=== PATIENT | male | born 1985 | race Caucasian/White ===

== ENCOUNTER 2023-11-17 16:23 | Inpatient (IN) ==
[2023-11-17 17:07] LABS: Basophils # (auto) 0.05 K/uL (0.00-0.20); Basophils % (auto) 0.8 %; Eosinophils # (auto) 0.08 K/uL (0.00-0.50); Eosinophils % (auto) 1.3 %; Hematocrit (blood only) 46.4 % (42.0-52.0); Hemoglobin 15.4 g/dl (14.0-18.0); Immature Granulocytes # (auto) 0.03 K/uL (0.01-0.20); Immature Granulocytes % (auto) 0.5 %; Lymphocytes # (auto) 1.28 K/uL (1.20-3.40); Lymphocytes % (auto) 20.3 %; Mean Corpuscular Hemoglobin 31.3 pg (25.0-34.0); Mean Corpuscular Hgb Conc 33.2 g/dL (32.0-36.0); Mean Corpuscular Volume 94.3 fL (80.0-100.0); Mean Platelet Volume 10.2 fL (9.4-12.4); Monocytes # (auto) 0.53 K/uL (0.11-0.59); Monocytes % (auto) 8.4 %; Neutrophils # (auto) 4.35 K/uL (1.40-6.50); Neutrophils % (auto) 68.7 %; Platelet Count 225 K/uL (130-400); RDW Coefficient of Variation 12.1 % (11.5-14.5); RDW Standard Deviation 41.9 fL (36.4-46.3); Red Blood Count 4.92 M/uL (4.70-6.10); White Blood Count 6.32 K/ul (4.8-10.8)
[2023-11-17 17:13] LABS: Appearance Urine Clear (Clear); Bilirubin Urine Negative (Negative); Blood Urine Negative (Negative); Color Urine Yellow; Glucose Urine UA Negative (Negative); Ketones Urine Negative (Negative); Leukocyte Esterase Urine Negative (Negative); Nitrite Urine Negative (Negative); Protein Urine Negative (Negative); Specific Gravity Urine 1.003 (1.000-1.030); Urobilinogen Urine Negative (Negative)
[2023-11-17 17:31] LABS: Albumin Globulin Ratio 1.7 (0.9-2); Bilirubin,Total 0.5 mg/dl (0.2-1.0); Creatinine Clr Calc Pharmacy 115.4 ml/min; Est GFR (African American) 111.7 ml/min; Est GFR (Non-African American) 96.4 ml/min; Globulin 2.9 gm/dl (2.5-4.0); Potassium 3.8 mmol/L (3.5-5.1); Total Protein 7.9 gm/dl (6.0-8.3)
[2023-11-17 17:52] LABS: Acetaminophen < 3 ug/ml (10-30); Salicylate < 3.0 mg/dl (3.0-30)
[2023-11-17 17:53] LABS: Amphetamines+Metham, Urine Neg (Neg); Barbiturates, Urine Neg (Neg); Benzodiazepine, Urine Neg (Neg); Cocaine, Urine Neg (Neg); Fentanyl, Urine Neg (Neg); MDMA (Ecstacy), Urine Neg (Neg); Marijuana, Urine Neg (Neg); Methadone, Urine Neg (Neg); Opiate, Urine Neg (Neg); Phencyclidine, Urine Neg (Neg)
--- NOTE | 2023-11-17 18:32 | Emergency Department Note ---
Impression & Plan Suicidal ideation, Has access to firearm ED Provider Note NAME: GHULAM GUNN AGE: 38 SEX: M : 1985 ARRIVES VIA: Walk-In INFORMANT: Patient, ED PROVIDER(S): Luis Waldron MD CHIEF COMPLAINT: Suicide attempt HPI: This is a 38-year-old male presenting for a suicide attempt. Patient recently was in detox/rehab. Patient left after the detox portion of the admission. He then went home, began drinking and then left to suicide notes. He had a loaded 9 mm handgun and had plans to shoot himself of the chest. He did not go through this yet. He states he does not any help at this time. He does state he had suicidal intent. ROS: See above HPI for pertinent positives & negatives. A total of 10 systems reviewed and were otherwise negative. PHYSICAL EXAMINATION: General: resting comfortably in no acute distress Head: Normocephalic and atraumatic Eyes: Normal inspection, extraocular muscles intact Ear, nose, throat: Normal external exam Neck: Normal range of motion Respiratory: lungs clear to auscultation bilaterally Cardiovascular: Regular rate/rhythm, no murmur GI: soft, nontender, no guarding or rebound Extremities: nontender, moves all extremities Neuro: The patient awake and alert, appropriately conversive, no focal deficits, symmetric faces Skin: Warm, dry, and intact Psych: Calm, linear thought process, MEDICAL DECISION MAKING: This is a 38-year-old male presenting for suicide attempt. Patient had a loaded 9 mm handgun and had plans to treat himself for the chest. I was given the suicide note and is very explicit and that patient had full intent to go through with suicide as he feels like he had to many mistakes in his life and that he is a burden. Will do screening medical workup. Patient will need to be a 302 as he does not want any psychiatric help at this time. -Blood work is reviewed showing no leukocytosis or anemia. Slight transaminitis concerning for alcoholic source. No bilirubin elevation. No coingestions. alcohol level was elevated. -302 signed. Patient will medically clear at around midnight based on his initial alcohol level. -Patient signed out to oncoming physician, Dr. Hinds, pending placement. Differential diagnosis: SI, HI, schizophrenia, bipolar ER treatment provided: See below Diagnostics interpreted by me: ECG: None Cardiac Monitoring: An order was placed for continuous cardiac monitoring. The monitor shows a rate of 87 with sinus rhythm. Laboratory studies: As stated above and show below. Imaging studies: See below. Past Med/Surg History Problem List (Updated 11/17/23 @ 23:54 by Luis Waldron MD) Has access to firearm (Acute) Suicidal ideation (Acute) Alcohol dependence (Acute) Laceration (Acute) Social History Smoking Status: Never smoker Feels Safe at Home: Yes Allergies Allergies Allergy/AdvReac Type Severity Reaction Status Date / Time No Known Allergies Allergy Mild Unverified 07/26/07 10:16 Home Meds Home Medications Medication Instructions Recorded Confirmed None (Patient States No Home Meds) ##0 06/26/08 Results & Data (ED) Vital Signs Vital Signs - 24 hr 11/17/23 16:27 11/17/23 19:15 11/17/23 21:46 Temperature 36.8 C 36.7 C Temperature Source Skin Oral Pulse Rate 125 H Pulse Rate [Finger] 104 H 100 H Respiratory Rate 20 20 18 Respiratory Effort / Characteristics Non-Labored Spontaneous Respiratory Depth Normal Respiratory Pattern Regular Blood Pressure 122/75 Blood Pressure [Left Arm] 103/65 100/56 L Blood Pressure Mean 90 Blood Pressure Mean [Left Arm] 77 70 Pulse Oximetry 96 96 98 Oxygen Delivery Method Room Air Room Air Sepsis Recent Fever Within 48 Hours No Sepsis New/Unexplained Change in Mental Status N/A Sepsis Action Taken by Nursing No Action Required 11/17/23 23:15 Temperature Temperature Source Pulse Rate Pulse Rate [Finger] 87 Respiratory Rate 18 Respiratory Effort / Characteristics Non-Labored Spontaneous Respiratory Depth Normal Respiratory Pattern Blood Pressure Blood Pressure [Left Arm] 116/74 Blood Pressure Mean Blood Pressure Mean [Left Arm] 88 Pulse Oximetry 100 Oxygen Delivery Method Room Air Sepsis Recent Fever Within 48 Hours Sepsis New/Unexplained Change in Mental Status Sepsis Action Taken by Nursing Laboratory Data 11/17/23 16:50 11/17/23 16:50 Lab Results 11/17/23 11/17/23 Range/Units 16:45 16:50 WBC 6.32 (4.8-10.8) K/ul RBC 4.92 (4.70-6.10) M/uL Hgb 15.4 (14.0-18.0) g/dl Hct 46.4 (42.0-52.0) % MCV 94.3 (80.0-100.0) fL MCH 31.3 (25.0-34.0) pg MCHC 33.2 (32.0-36.0) g/dL RDW Std Deviation 41.9 (36.4-46.3) fL RDW Coeff of Dee 12.1 (11.5-14.5) % Plt Count 225 (130-400) K/uL MPV 10.2 (9.4-12.4) fL Immature Gran % (Auto) 0.5 % Neut % (Auto) 68.7 % Lymph % (Auto) 20.3 % [place] % (Auto) 8.4 % Eos % (Auto) 1.3 % Baso % (Auto) 0.8 % Neut # (Auto) 4.35 (1.40-6.50) K/uL Lymph # (Auto) 1.28 (1.20-3.40) K/uL [place] # (Auto) 0.53 (0.11-0.59) K/uL Eos # (Auto) 0.08 (0.00-0.50) K/uL Baso # (Auto) 0.05 (0.00-0.20) K/uL Immature Gran # (Auto) 0.03 (0.01-0.20) K/uL Sodium 141 (136-145) mmol/L Potassium 3.8 (3.5-5.1) mmol/L Chloride 105 (98-107) mmol/L Carbon Dioxide 21 (21-32) mmol/L Anion Gap 15 H (3-11) BUN 6 (6-23) mg/dl Creatinine 1.00 (0.6-1.4) mg/dl Est Cr Clr Drug Dosing 115.4 ml/min Est GFR ( Amer) 111.7 ml/min Est GFR (Non-Af Amer) 96.4 ml/min BUN/Creatinine Ratio 6.0 L (10-20) Glucose 100 H (70-99(Fasting)) mg/dl Calcium 10.0 (8.6-10.3) mg/dl Total Bilirubin 0.5 (0.2-1.0) mg/dl AST 57 H (13-39) U/L ALT 90 H (7-52) U/L Alkaline Phosphatase 56 (34-104) U/L Total Protein 7.9 (6.0-8.3) gm/dl Albumin 5.0 (3.4-5.0) gm/dl Globulin 2.9 (2.5-4.0) gm/dl Albumin/Globulin Ratio 1.7 (0.9-2) TSH 1.137 (0.300-4.500) uIu/ml Urine Color Yellow Urine Appearance Clear (Clear) Urine pH 6.0 (4.5-7.5) Ur Specific [place] 1.003 (1.000-1.030) Urine Protein Negative (Negative) Urine Glucose (UA) Negative (Negative) Urine Ketones Negative (Negative) Urine Blood Negative (Negative) Urine Nitrite Negative (Negative) Urine Bilirubin Negative (Negative) Urine Urobilinogen Negative (Negative) Ur Leukocyte Esterase Negative (Negative) Salicylates < 3.0 L (3.0-30) mg/dl Urine Opiates Screen Neg (Neg) Ur Methadone, Qual Neg (Neg) Urine Fentanyl Screen Neg (Neg) Acetaminophen < 3 L (10-30) ug/ml Urine Barbiturates Neg (Neg) Ur Phencyclidine (PCP) Neg (Neg) U Amphetamin/Meth Scrn Neg (Neg) MDMA (Ecstasy) Screen Neg (Neg) U Benzodiazepines Scrn Neg (Neg) Ur Cocaine Metabolite Neg (Neg) U Marijuana (THC) Screen Neg (Neg) Ethyl Alcohol mg/dL 290.6 H (<10.0) mg/dl SARS-CoV-2, RNA, NAAT NEGATIVE (NEGATIVE) Discharge Plan Visit Data Chief Complaint: Mental Health Evaluation Stated Complaint: 302/MENTAL HEALTH EVAL ED Provider: Luis Waldron Discharge Problem: Suicidal ideation, Has access to firearm Forms Stand Alone Forms: My [facility], Suicide Prevention Resources Prescriptions Prescriptions: No Action None (Patient States No Home Meds) . Qty: 0 Referrals Referrals: PCP,NO [Primary Care Provider] -
[2023-11-17 18:50] LABS: Thyroid Stimulating Hormone 1.137 uIu/ml (0.300-4.500)
--- NOTE | 2023-11-18 00:03 | Emergency Department Note ---
ED Visit Note This patient was signed out to me at shift change by Dr. Waldron. The patient came in with a suicidal plan and a 302 had been signed off. He was evaluated by mental health. 3 S. has seen the patient and will be admitting the patient for further inpatient treatment and evaluation .
[2023-11-18] MEDS ORDERED: SODIUM CHLORIDE 0.65% NA SOLN 45 ML (OCEAN) PRN (05:13)
[2023-11-18] MEDS ORDERED: ALUMINUM/MAGNESIUM SUSP 30 ML UDC PO PRN (05:13)
[2023-11-18] MEDS ORDERED: MAGNESIUM HYDROXIDE SUSP 30 ML UDC PO PRN (05:13)
[2023-11-18] MEDS ORDERED: LORazepam 1 MG TAB PO PRN ×4 (05:13)
[2023-11-18] MEDS ORDERED: BISMUTH SUBSALICYLATE LIQD 236 ML PO PRN (05:13)
[2023-11-18] MEDS ORDERED: hydrOXYzine HCl 25 MG TAB PO PRN ×2 (05:13)
[2023-11-18] MEDS ORDERED: Ativan PO Alcohol Withdrawal--Active Protocol PO PRN (05:13)
[2023-11-18] MEDS ORDERED: ACETAMINOPHEN 325 MG TAB PO PRN (05:13)
[2023-11-18] MEDS: SERTRALINE HCL 50 MG TABLET PO SCH (12:59)
[2023-11-18] MEDS: FOLIC ACID 1 MG TAB PO SCH (15:34)
[2023-11-18] MEDS: THIAMINE HCL 100 MG TAB PO SCH (15:34)
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
--- NOTE | 2023-11-19 15:31 | Psychiatric Progress Note ---
Date of Service November 19, 2023 Impression / Recommendations Impression GHULAM GUNN is a 38-year-old M who currently lives in alone, no past psychiatric history, and was admitted on 11/18/23 04:47 on a 302 involuntary commitment for suicide ideation with note and gesture. Diagnosis consistent with major depressive disorder and alcohol use disorder. Today we explored patient's view of himself, self esteem issues, and extent and problems related to alcohol consumptions. Patient meets criteria for mild to moderate alcohol use disorder and conducted motivational interviewing and education on community programs for abstinence. He self presented intention for inpatient rehab facility and will coordinate with social work. Tolerating sertraline with mild GI complaints and plan to continue. Overall, I spent a total of 45 minutes with this case including review of chart records, nursing report, direct evaluation of the patient at bedside, counseling the patient, multidisciplinary team meeting, orders, and documentation in the electronic health record. (1) MDD (major depressive disorder), recurrent episode, moderate: (2) Alcohol use disorder: (3) Laceration: Plan 11/19/2023: Continue medications and treatment plan. 11/18/2023: The patient was admitted to the [facility] ([facility]) on q15 min checks (behavioral with suicide precautions) for safety. The patient will participate in group, recreational, and milieu therapies and will be offered additional individual and family sessions as clinically appropriate. Start sertraline 50 mg daily. Discontinue audit protocol. Inventory Assets Strengths: family support, finances Needs: insight into condition, openness to treatment Suicide Risk Level Suicide Risk Level: Moderate (q15 min suicide checks) Risk Factors Assessment Male: Yes : Yes Do You Have Access To A Gun?: Yes (Father Took the firearm.) Health Problems: No Mental Health Diagnoses: Yes Substance Use Disorders: Yes Previous Attempt: No Family History of Suicide: No Previous Psychiatric Hospitalization: No Hopelessness: No Protective Factors Assessment Pentecostalism Beliefs: No : No Responsible for Young Children: No Employed: No (fired from job) Stable Relationships: Yes Supportive Family: Yes Good Rapport with Provider: Yes Absence of Any Risk Factors Above: No Interval History Identifying Information GHULAM GUNN is a 38-year-old M who currently lives in alone, no past psychiatric history, and was admitted on 11/18/23 04:47 on a 302 involuntary commitment for suicide ideation with note and gesture. Chief Complaint "Positive" Review of Systems Sleep Information Total Hours of Sleep: 0.75 Sleep Comments: admitted early in morning Meal Information Percent Meal Consumed - Breakfast: 75 Percent Meal Consumed - Lunch: 100 Percent Meal Consumed - Dinner: 100 Subjective Subjective Patient was seen & assessed and interval progress reviewed with treatment team nursing and social work Pt slept well last night. Feels "positive" about the future. Had a visit from mother and brother. Reports that father was his idol growing up and seeing him vunerable with his addiction changed the family dynamics. He felt is brought everyone closer. He used to relate weakness to vulnerability and reports that's not the case. Reports he enjoys helping others. Has difficulty forgiving himself for the things hes done in the past. Reports historically using alcohol socially but recently has noticed he's using it more to cope. Drinks more in the winter and has periods of times where he escalates use. Denies having difficulty cutting down when he needs to. When younger would drink prior to work with his friends; reports that is not the case as he has gotten older. Reports inc tolerance and has to drink more now to get the same effect. On a night out could drink 7-8 mixed drinks and shots. C/o some withdrawals cutting down alcohol with "Shakes." Reports associated problems of relationship issues where he will go out with his significant other and is more focused on drinking than her. Notices when he drinks he is less motivated to take care of tasks. Denies SI. Wants to get into inpatient rehab after discussing with family. C/o mild GI upset with sertraline, reports its tolerable. Physical Exam Mental Examination appearance: cespedes, tall Appearance: Well Groomed Eye Contact: Maintains Eye Contact Motor Behavior: Unremarkable Speech: Normal Mood: Euthymic and Calm Affect: Congruent Thought Process: Intact and Linear Thought Content: Intact Hallucinations: None Insight: Poor (improving) Judgement: Poor Vital Signs (Past 24 Hours) Last Vital Signs Temp 36.7 C 11/18/23 05:59 Pulse 103 H 11/18/23 05:59 Resp 18 11/18/23 05:59 BP 131/91 11/18/23 05:59 Pulse Ox 96 11/18/23 05:59 O2 Del Method Room Air 11/18/23 05:59 Results & Data ([facility]) Current Inpatient Medications Current Inpatient Medications: Current Inpatient Medications Acetaminophen (Acetaminophen 325 Mg Tab) 650 mg PO Q4H PRN PRN Reason: Headache or Minor Fever Stop: 12/18/23 05:12 Al Hydrox/Mg Hydrox/Simethicone (Aluminum/Magnesium Susp 30 Ml Udc) 30 ml PO Q4H PRN PRN Reason: GI Upset Stop: 12/18/23 05:12 Bismuth Subsalicylate (Bismuth Subsalicylate Liqd 236 Ml) 15 ml PO PRN PRN PRN Reason: Loose Stool Stop: 12/18/23 05:12 Hydroxyzine HCl (Hydroxyzine Hcl 25 Mg Tab) 50 mg PO HSZ PRN PRN Reason: Insomnia Stop: 12/18/23 05:12 Hydroxyzine HCl (Hydroxyzine Hcl 25 Mg Tab) 25 mg PO Q4H PRN PRN Reason: Anxiety Stop: 12/18/23 05:12 Magnesium Hydroxide (Magnesium Hydroxide Susp 30 Ml Udc) 30 ml PO DAILY PRN PRN Reason: Constipation Stop: 12/18/23 05:12 Sertraline HCl (Sertraline Hcl 50 Mg Tablet) 50 mg PO QAM TOBY Stop: 12/18/23 12:14 Last Admin: 11/18/23 12:59 Dose: 50 mg Sodium Chloride (Sodium Chloride 0.65% Na Soln 45 Ml ([place])) 1 - 2 sprays NA PRN PRN PRN Reason: Nasal Dryness/Congestion Stop: 12/18/23 05:12 Post Discharge Appointments Primary Care Physician Name Of Family Doctor/PCP: None Currently
--- NOTE | 2023-11-20 08:50 | Psychiatric Progress Note ---
Date of Service November 20, 2023 Impression / Recommendations Impression GHULAM GUNN is a 38-year-old M who currently lives in alone, no past psychiatric history, and was admitted on 11/18/23 04:47 on a 302 involuntary commitment for suicide ideation with note and gesture. Diagnosis consistent with major depressive disorder and alcohol use disorder. A: Mood improving, motivational interviewing and in action stage of change, called residential treatment facility and motivated to start there if accepted. Reviewed option to start naltrexone, he declines at this time. Denies any side effects from sertraline. Finding groups and processing very helpful. Overall, I spent a total of 40 minutes with this case including review of chart records, nursing report, direct evaluation of the patient at bedside, counseling the patient, multidisciplinary team meeting, orders, and documentation in the electronic health record. (1) MDD (major depressive disorder), recurrent episode, moderate: (2) Alcohol use disorder: (3) Laceration: Plan 11/20/2023: Continue current medications and tx plan. 11/19/2023: Continue medications and treatment plan. 11/18/2023: The patient was admitted to the [facility] ([facility] mental health unit) on q15 min checks (behavioral with suicide precautions) for safety. The patient will participate in group, recreational, and milieu therapies and will be offered additional individual and family sessions as clinically appropriate. Start sertraline 50 mg daily. Discontinue awss protocol. 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, feels safe in the hospital) Risk Factors Assessment Male: Yes : Yes Do You Have Access To A Gun?: Yes (Father Took the firearm.) Health Problems: No Mental Health Diagnoses: Yes Substance Use Disorders: Yes Previous Attempt: No Family History of Suicide: No Previous Psychiatric Hospitalization: No Hopelessness: No Protective Factors Assessment Mormon Beliefs: No : No Responsible for Young Children: No Employed: No (fired from job) Stable Relationships: Yes Supportive Family: Yes Good Rapport with Provider: Yes Absence of Any Risk Factors Above: No Interval History Identifying Information GHULAM GUNN is a 38-year-old M who currently lives in alone, no past psychiatric history, and was admitted on 11/18/23 04:47 on a 302 involuntary commitment for suicide ideation with note and gesture. Chief Complaint "making a lot of progress". Review of Systems Sleep Information Total Hours of Sleep: 6.45 Sleep Comments: Meal Information Percent Meal Consumed - Breakfast: 75 Percent Meal Consumed - Lunch: 100 Percent Meal Consumed - Dinner: 50 Subjective Subjective Patient was seen & assessed and interval progress reviewed with treatment team nursing and social work. Attending groups. Reports mood improving, motivated for residential tx. Good visit with family. No GI symptoms today. Physical Exam Psychiatric Orientation: alert and oriented x 3 Apperance: appropriately dressed Eye Contact: + fair eye contact Motor Behavior: no abnormal motor movements Speech: normal rate/rhythm/volume of speech Affect: euthymic affect Mood: + depressed mood and + anxious mood Thought Process: goal directed thought process Thought Content: reality based without delusions Suicidal Thoughts: denies suicidal thoughts Homicidal Thoughts: denies homicidal thoughts Hallucinations: no auditory hallucinations and no visual hallucinations Insight: + fair insight Judgment: + fair judgement Vital Signs (Past 24 Hours) Last Vital Signs Temp 36.8 C 11/20/23 06:48 Pulse 73 11/20/23 06:48 Resp 18 11/20/23 06:48 BP 129/83 11/20/23 06:48 Pulse Ox 99 11/20/23 06:48 O2 Del Method Room Air 11/20/23 06:48 Results & Data ([facility]) Current Inpatient Medications Current Inpatient Medications: Current Inpatient Medications Acetaminophen (Acetaminophen 325 Mg Tab) 650 mg PO Q4H PRN PRN Reason: Headache or Minor Fever Stop: 12/18/23 05:12 Al Hydrox/Mg Hydrox/Simethicone (Aluminum/Magnesium Susp 30 Ml Udc) 30 ml PO Q4H PRN PRN Reason: GI Upset Stop: 12/18/23 05:12 Bismuth Subsalicylate (Bismuth Subsalicylate Liqd 236 Ml) 15 ml PO PRN PRN PRN Reason: Loose Stool Stop: 12/18/23 05:12 Hydroxyzine HCl (Hydroxyzine Hcl 25 Mg Tab) 50 mg PO HSZ PRN PRN Reason: Insomnia Stop: 12/18/23 05:12 Hydroxyzine HCl (Hydroxyzine Hcl 25 Mg Tab) 25 mg PO Q4H PRN PRN Reason: Anxiety Stop: 12/18/23 05:12 Magnesium Hydroxide (Magnesium Hydroxide Susp 30 Ml Udc) 30 ml PO DAILY PRN PRN Reason: Constipation Stop: 12/18/23 05:12 Sertraline HCl (Sertraline Hcl 50 Mg Tablet) 50 mg PO QAM TOBY Stop: 12/18/23 12:14 Last Admin: 11/20/23 08:28 Dose: 50 mg Sodium Chloride (Sodium Chloride 0.65% Na Soln 45 Ml ([place])) 1 - 2 sprays NA PRN PRN PRN Reason: Nasal Dryness/Congestion Stop: 12/18/23 05:12 Mental Health & Subst Abuse Tx Psychiatrist Name of Psychiatrist: N/A Therapist Name of Therapist: N/A Post Discharge Appointments Primary Care Physician Name Of Family Doctor/PCP: Christie Waldron (new referral) [address] [facility] 2 Primary Care Date of Future Appointment with PCP: 12/01/23 Time of Appointment with PCP: 11:00am Provider Appointment Comment: Please arrive at 10:45, bring ID and insurance card to appt. Partial or Psych Rehab Name of Partial or Psych Rehab: [facility] (Residential D[facility]A) Phone Number of Partial or Psych Rehab: [phone] Partial or Psych Rehab Appointment Comment: [address] [id number]
--- NOTE | 2023-11-21 09:06 | Psychiatric Progress Note ---
Date of Service November 21, 2023 Impression / Recommendations Impression GHULAM GUNN is a 38-year-old M who currently lives in alone, no past psychiatric history, and was admitted on 11/18/23 04:47 on a 302 involuntary commitment for suicide ideation with note and gesture. Diagnosis consistent with major depressive disorder and alcohol use disorder. A: Mood continues to improve, remains motivated for residential substance use treatment which at this point will be the biggest modifiable risk factor to reduce risk of self-harm. Tolerating sertraline well. Continuing to explore appropriate disposition options. Overall, I spent a total of 25 minutes with this case including review of chart records, nursing report, direct evaluation of the patient at bedside, counseling the patient, multidisciplinary team meeting, orders, and documentation in the electronic health record. (1) MDD (major depressive disorder), recurrent episode, moderate: (2) Alcohol use disorder: (3) Laceration: Plan 11/21/2023: Can have sutures removed. Continue current meds and tx plan. Ongoing disposition planning. 11/20/2023: Continue current medications and tx plan. 11/19/2023: Continue medications and treatment plan. 11/18/2023: The patient was admitted to the [facility] ([facility]) on q15 min checks (behavioral with suicide precautions) for safety. The patient will participate in group, recreational, and milieu therapies and will be offered additional individual and family sessions as clinically appropriate. Start sertraline 50 mg daily. Discontinue awss protocol. 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, feels safe in the hospital) Risk Factors Assessment Male: Yes : Yes Do You Have Access To A Gun?: Yes (Father Took the firearm.) Health Problems: No Mental Health Diagnoses: Yes Substance Use Disorders: Yes Previous Attempt: No Family History of Suicide: No Previous Psychiatric Hospitalization: No Hopelessness: No Protective Factors Assessment Evangelical Beliefs: No : No Responsible for Young Children: No Employed: No (fired from job) Stable Relationships: Yes Supportive Family: Yes Good Rapport with Provider: Yes Absence of Any Risk Factors Above: No Interval History Identifying Information GHULAM GUNN is a 38-year-old M who currently lives in alone, no past psychiatric history, and was admitted on 11/18/23 04:47 on a 302 involuntary commitment for suicide ideation with note and gesture. Chief Complaint "Well". Review of Systems Sleep Information Total Hours of Sleep: 6.30 Meal Information Percent Meal Consumed - Breakfast: 100 Percent Meal Consumed - Lunch: 100 Percent Meal Consumed - Dinner: 100 Subjective Subjective Patient was seen & assessed and interval progress reviewed with treatment team nursing and social work. Attending groups. Talking to different residential treatment facilities. He would prefer to go right to treatment from inpatient stay to reduce risk of relapse. Mood is stable today, denies SI. Reviewed that his sutures are due to be removed. Physical Exam Psychiatric Orientation: alert and oriented x 3 Apperance: appropriately dressed Eye Contact: good eye contact Motor Behavior: no abnormal motor movements Speech: normal rate/rhythm/volume of speech Affect: euthymic affect Mood: + anxious mood Thought Process: goal directed thought process Thought Content: reality based without delusions Suicidal Thoughts: denies suicidal thoughts Homicidal Thoughts: denies homicidal thoughts Hallucinations: no auditory hallucinations and no visual hallucinations Insight: + fair insight Judgment: + fair judgement Vital Signs (Past 24 Hours) Last Vital Signs Temp 36.6 C 11/21/23 06:41 Pulse 95 H 11/21/23 06:41 Resp 16 11/21/23 06:41 BP 125/83 11/21/23 06:41 Pulse Ox 97 11/21/23 06:41 O2 Del Method Room Air 11/21/23 06:41 Results & Data ([facility]) Current Inpatient Medications Current Inpatient Medications: Current Inpatient Medications Acetaminophen (Acetaminophen 325 Mg Tab) 650 mg PO Q4H PRN PRN Reason: Headache or Minor Fever Stop: 12/18/23 05:12 Al Hydrox/Mg Hydrox/Simethicone (Aluminum/Magnesium Susp 30 Ml Udc) 30 ml PO Q4H PRN PRN Reason: GI Upset Stop: 12/18/23 05:12 Bismuth Subsalicylate (Bismuth Subsalicylate Liqd 236 Ml) 15 ml PO PRN PRN PRN Reason: Loose Stool Stop: 12/18/23 05:12 Hydroxyzine HCl (Hydroxyzine Hcl 25 Mg Tab) 50 mg PO HSZ PRN PRN Reason: Insomnia Stop: 12/18/23 05:12 Hydroxyzine HCl (Hydroxyzine Hcl 25 Mg Tab) 25 mg PO Q4H PRN PRN Reason: Anxiety Stop: 12/18/23 05:12 Magnesium Hydroxide (Magnesium Hydroxide Susp 30 Ml Udc) 30 ml PO DAILY PRN PRN Reason: Constipation Stop: 12/18/23 05:12 Sertraline HCl (Sertraline Hcl 50 Mg Tablet) 50 mg PO QAM TOBY Stop: 12/18/23 12:14 Last Admin: 11/21/23 08:38 Dose: 50 mg Sodium Chloride (Sodium Chloride 0.65% Na Soln 45 Ml ([place])) 1 - 2 sprays NA PRN PRN PRN Reason: Nasal Dryness/Congestion Stop: 12/18/23 05:12 Mental Health & Subst Abuse Tx Psychiatrist Name of Psychiatrist: N/A Therapist Name of Therapist: N/A Post Discharge Appointments Primary Care Physician Name Of Family Doctor/PCP: Christie Waldron (new referral) [address] [facility] 2 Primary Care Date of Future Appointment with PCP: 12/01/23 Time of Appointment with PCP: 11:00am Provider Appointment Comment: Please arrive at 10:45, bring ID and insurance card to appt. Partial or Psych Rehab Name of Partial or Psych Rehab: [facility] (Residential D&A) Phone Number of Partial or Psych Rehab: [phone] Partial or Psych Rehab Appointment Comment: [phone] [phone]
--- NOTE | 2023-11-22 14:36 | Psychiatric Progress Note ---
Date of Service November 22, 2023 Impression / Recommendations Impression GHULAM GUNN is a 38-year-old M who currently lives in alone, no past psychiatric history, and was admitted on 11/18/23 04:47 on a 302 involuntary commitment for suicide ideation with note and gesture. Diagnosis consistent with major depressive disorder and alcohol use disorder. A: Mood continues to improve, remains motivated for residential substance use treatment which at this point will be the biggest modifiable risk factor to reduce risk of self-harm. Tolerating sertraline well. Continuing to explore appropriate disposition options. Overall, I spent a total of 25 minutes with this case including review of chart records, nursing report, direct evaluation of the patient at bedside, counseling the patient, multidisciplinary team meeting, orders, and documentation in the electronic health record. (1) MDD (major depressive disorder), recurrent episode, moderate: (2) Alcohol use disorder: (3) Laceration: Plan 11/21/2023: Can have sutures removed. Continue current meds and tx plan. Ongoing disposition planning. 11/20/2023: Continue current medications and tx plan. 11/19/2023: Continue medications and treatment plan. 11/18/2023: The patient was admitted to the [facility] ([facility] mental health unit) on q15 min checks (behavioral with suicide precautions) for safety. The patient will participate in group, recreational, and milieu therapies and will be offered additional individual and family sessions as clinically appropriate. Start sertraline 50 mg daily. Discontinue awss protocol. 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, feels safe in the hospital) Risk Factors Assessment Male: Yes : Yes Do You Have Access To A Gun?: Yes (Father Took the firearm.) Health Problems: No Mental Health Diagnoses: Yes Substance Use Disorders: Yes Previous Attempt: No Family History of Suicide: No Previous Psychiatric Hospitalization: No Hopelessness: No Protective Factors Assessment Gnosticism Beliefs: No : No Responsible for Young Children: No Employed: No (fired from job) Stable Relationships: Yes Supportive Family: Yes Good Rapport with Provider: Yes Absence of Any Risk Factors Above: No Interval History Identifying Information GHULAM GUNN is a 38-year-old M who currently lives in alone, no past psychiatric history, and was admitted on 11/18/23 04:47 on a 302 involuntary commitment for suicide ideation with note and gesture. Chief Complaint "[]". Review of Systems Sleep Information Total Hours of Sleep: 7 Meal Information Percent Meal Consumed - Breakfast: 100 Percent Meal Consumed - Lunch: 100 Percent Meal Consumed - Dinner: 100 Subjective Subjective Patient was seen & assessed and interval progress reviewed with [treatment team] [nursing and social work] Physical Exam Vital Signs (Past 24 Hours) Last Vital Signs Temp 36.6 C 11/22/23 06:30 Pulse 96 H 11/22/23 06:30 Resp 16 11/22/23 06:30 BP 130/87 11/22/23 06:30 Pulse Ox 100 11/22/23 06:30 O2 Del Method Room Air 11/22/23 06:30 Results & Data ([facility]) Current Inpatient Medications Current Inpatient Medications: Current Inpatient Medications Acetaminophen (Acetaminophen 325 Mg Tab) 650 mg PO Q4H PRN PRN Reason: Headache or Minor Fever Stop: 12/18/23 05:12 Al Hydrox/Mg Hydrox/Simethicone (Aluminum/Magnesium Susp 30 Ml Udc) 30 ml PO Q4H PRN PRN Reason: GI Upset Stop: 12/18/23 05:12 Bismuth Subsalicylate (Bismuth Subsalicylate Liqd 236 Ml) 15 ml PO PRN PRN PRN Reason: Loose Stool Stop: 12/18/23 05:12 Hydroxyzine HCl (Hydroxyzine Hcl 25 Mg Tab) 50 mg PO HSZ PRN PRN Reason: Insomnia Stop: 12/18/23 05:12 Hydroxyzine HCl (Hydroxyzine Hcl 25 Mg Tab) 25 mg PO Q4H PRN PRN Reason: Anxiety Stop: 12/18/23 05:12 Magnesium Hydroxide (Magnesium Hydroxide Susp 30 Ml Udc) 30 ml PO DAILY PRN PRN Reason: Constipation Stop: 12/18/23 05:12 Sertraline HCl (Sertraline Hcl 50 Mg Tablet) 50 mg PO QAM TOBY Stop: 12/18/23 12:14 Last Admin: 11/22/23 08:56 Dose: 50 mg Sodium Chloride (Sodium Chloride 0.65% Na Soln 45 Ml ([place])) 1 - 2 sprays NA PRN PRN PRN Reason: Nasal Dryness/Congestion Stop: 12/18/23 05:12 Mental Health & Subst Abuse Tx Psychiatrist Name of Psychiatrist: N/A Therapist Name of Therapist: N/A Post Discharge Appointments Primary Care Physician Name Of Family Doctor/PCP: Christie Waldron (new referral) [address] [facility] Primary Care Date of Future Appointment with PCP: 12/01/23 Time of Appointment with PCP: 11:00am Provider Appointment Comment: Please arrive at 10:45, bring ID and insurance card to appt. Partial or Psych Rehab Name of Partial or Psych Rehab: [facility] (Residential D&A) Phone Number of Partial or Psych Rehab: [phone] Partial or Psych Rehab Appointment Comment: [phone] [id number]
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
== END 2023-11-22 17:20 | disposition home or self-care (01) | DRG 885 ==
LOC: ED 16:23 → 3S 11-18 04:47 → SUATTDRO 11-18 04:47 → 3S 11-18 04:59